=== PATIENT | male | born 1995 | race African-American/Black ===

== ENCOUNTER 2017-05-13 03:38 | Emergency (ER) | payer SELFPAY ==
[~2017-05-13] VITALS: Ht 182.9 cm; Wt 70.3 kg
[2017-05-13 03:48] VITALS: BP 123/76
== END 2017-05-13 04:26 | disposition home or self-care (01) ==
LOC: ER 03:41
DX: Z00.8 Encounter for other general examination (principal)
CPT/HCPCS: 99283; A4606; Z7610

== ENCOUNTER 2017-05-29 00:14 | Emergency (ER) | payer MEDICAID ==
[~2017-05-29] VITALS: Ht 182.9 cm; Wt 66.7 kg
--- NOTE | 2017-05-29 01:19 | NUR ---
22 YO MALE BB MOTHER. PT IS ALERT X 3, AMBULATED TO ER BED WITH STEADY GAIT, SKIN WARM AND DRY, RR EVEN AND UNLABORED. PT GOWNED,PLACED ON WELDER FITTER. AWAITING ORDERS FROM PROVIDER
[2017-05-29] MEDS ORDERED: ONDANSETRON HCL/PF 4 MG/2 ML VIAL IM ONE (02:00)
[2017-05-29] MEDS ORDERED: ONDANSETRON HCL/PF 4 MG/2 ML VIAL ONE (02:03)
--- NOTE | 2017-05-29 02:06 | NUR ---
PT GIVEN ZOFRAN 4MG IM AT RIGHT DELTOID. PT EXPRESSES MINOR NAUSEA.
--- NOTE | 2017-05-29 03:06 | NUR ---
PT ABLE TO EAT CRACKERS AND DRINK WATER WITHOUT N/V.
[2017-05-29 03:09] VITALS: BP 112/76
[2017-05-29] MEDS ORDERED: ONDANSETRON 4 MG TAB.RAPDIS ONE (03:11)
--- NOTE | 2017-05-29 03:16 | NUR ---
Patient discharged to home in stable condition. Written and verbal after care instructions given. Patient verbalizes understanding of instruction. PT ambulatory with a steady gait VITAL SIGNS WITHIN NORMAL LIMITS. RX GIVEN, DISCHARGE PAPERWORK COMPLETED.
[2017-05-29] MEDS ORDERED: ONDANSETRON 4 MG TAB.RAPDIS SL ONE (03:30)
== END 2017-05-29 03:14 | disposition home or self-care (01) ==
LOC: ER 00:14
DX: K52.9 Noninfective gastroenteritis and colitis, unspecified (principal)
CPT/HCPCS: 96372; 99283; A4606; J2405; Q0162; Z7610

== ENCOUNTER 2017-11-25 22:21 | Emergency (ER) | payer OTHER ==
[~2017-11-25] VITALS: Ht 182.9 cm; Wt 65.8 kg
--- NOTE | 2017-11-25 22:30 | NUR ---
BIB FAMILY C/O ANXIETY X 2 DAYS
[2017-11-25 23:46] VITALS: BP 121/63
[2017-11-25] MEDS ORDERED: LORAZEPAM 1 MG TABLET ONE (23:46)
--- NOTE | 2017-11-25 23:51 | NUR ---
Patient discharged to home in stable condition. Written and verbal after care instructions given. Patient verbalizes understanding of instruction. ambulatory with a steady gait noted. advice pt not to drive or operate any machinery due ot pt was given narcotic medicine.
[2017-11-26] MEDS ORDERED: LORAZEPAM 1 MG TABLET PO ONE
== END 2017-11-25 23:52 | disposition home or self-care (01) ==
LOC: ER 22:21
DX: F41.0 Panic disorder [episodic paroxysmal anxiety] (principal)
CPT/HCPCS: A4606; Z7610

== ENCOUNTER 2019-07-27 20:41 | Emergency (ER) | payer OTHER ==
[~2019-07-27] VITALS: Ht 185.4 cm; Wt 63.0 kg
[2019-07-27 20:41] VITALS: BP 113/73
--- NOTE | 2019-07-27 21:37 | NUR ---
ER PA AT BEDSIDE
== END 2019-07-27 21:49 | disposition home or self-care (01) ==
LOC: ER 20:41
DX: J20.9 Acute bronchitis, unspecified (principal)

== ENCOUNTER 2021-03-07 18:24 | Emergency (ER) | payer OTHER ==
[~2021-03-07] VITALS: Ht 185.4 cm; Wt 65.8 kg
[2021-03-07 18:37] VITALS: BP 113/70
--- NOTE | 2021-03-07 23:05 | NUR ---
SEEN AND EXAMINED BY DR PARRA
== END 2021-03-07 23:11 | disposition home or self-care (01) ==
LOC: ER 18:38
DX: R00.2 Palpitations (principal); R06.00 Dyspnea, unspecified

== ENCOUNTER 2023-04-18 18:18 | Emergency (ER) | payer OTHER ==
[~2023-04-18] VITALS: Ht 185.4 cm; Wt 63.5 kg
[2023-04-18] MEDS ORDERED: METO25TA6 PO ×2 (18:47→18:57)
[2023-04-18 19:00] VITALS: BP 139/94; TEMP 98.2; O2SAT 100
== END 2023-04-18 19:01 | disposition home or self-care (01) ==
LOC: ER 18:20
DX: F41.9 Anxiety disorder, unspecified (principal); R00.2 Palpitations

== ENCOUNTER 2024-09-14 18:34 | Emergency (ER) | payer OTHER ==
[~2024-09-14] VITALS: Ht 175.3 cm; Wt 65.8 kg
[~2024-09-14 18:34] MED LIST: METO25TA6 PO
[2024-09-14] MEDS ORDERED: LORAZEPAM 1 MG TABLET ONE (19:13)
[2024-09-14] MEDS: LORAZEPAM 1 MG TABLET PO ONE (19:16)
[2024-09-14 19:43] LABS: BASOPHILS % (AUTO) 0.8 % (0.0-2.0); EOSINOPHILS % (AUTO) 0.7 % (0.0-6.0); HEMATOCRIT 43 % (39-51); HEMOGLOBIN 13.9 g/dL (13.5-17.5); LYMPHOCYTES # (AUTO) 1.5 K/uL (0.8-4.8); LYMPHOCYTES % (AUTO) 43.6 % (20.0-44.0); MEAN CORPUSCULAR HEMOGLOBIN 30 PG (26.0-33.0); MEAN CORPUSCULAR HGB CONC 33 g/dl (31.0-36.0); MEAN CORPUSCULAR VOLUME 90 fL (80-96); MONOCYTES # (AUTO) 0.4 K/uL (0.1-1.30); MONOCYTES % (AUTO) 11.3 % (2.0-12.0); NEUTROPHILS # (AUTO) 1.5 K/uL (1.8-8.9); NEUTROPHILS % (AUTO) 43.6 % (43.0-81.0); PLATELET COUNT (AUTO) 250 K/uL (150-450); RED BLOOD CELL COUNT(AUTO) 4.72 MIL/uL (4.5-6.0); WHITE BLOOD COUNT (AUTO) 3.4 K/uL (4.3-11.0)
[2024-09-14 19:54] LABS: CALCIUM, SERUM 8.9 mg/dL (8.5-10.1); CREATININE 1.2 mg/dL (0.6-1.3); POTASSIUM 4.2 mmol/L (3.5-5.1)
[2024-09-14 20:46] LABS: T4 (THYROXINE) 9.3 ug/dL (4.7-13.3)
[2024-09-14] MEDS ORDERED: PROP20TA7 PO (23:12)
[2024-09-14 23:27] VITALS: BP 122/80; TEMP 98.2; O2SAT 99
== END 2024-09-14 23:28 | disposition home or self-care (01) ==
LOC: ER 18:41
DX: F41.9 Anxiety disorder, unspecified (principal); R51.9 Headache, unspecified; E05.90 Thyrotoxicosis, unspecified without thyrotoxic crisis or storm; Z79.899 Other long term (current) drug therapy
CPT/HCPCS: 36415; 70450-TC; 80048-TC; 84436-TC; 84439-TC; 84443-TC; 84480; 84481; 85025-TC

== ENCOUNTER 2024-11-14 13:24 | Emergency (ER) | payer OTHER ==
[~2024-11-14] VITALS: Ht 175.3 cm; Wt 72.6 kg
[~2024-11-14 13:24] MED LIST changes: +PROP20TA7 PO
[2024-11-14 13:34] VITALS: BP 114/80; TEMP 98.3
[2024-11-14 14:20] VITALS: O2SAT 98
== END 2024-11-14 14:21 | disposition home or self-care (01) ==
LOC: ER 13:27
DX: F41.9 Anxiety disorder, unspecified (principal); R11.0 Nausea; F41.0 Panic disorder [episodic paroxysmal anxiety]; Z79.899 Other long term (current) drug therapy